=== PATIENT | male | born 1950 | race Caucasian/White ===

== ENCOUNTER 2019-11-05 19:53 | Emergency (ER) | payer MEDICARE, OTHER, SELFPAY ==
[2019-11-05 19:59] VITALS: BP 178/97; PULSE 107; RESP 18; TEMP 36.8; O2SAT 97; BMI 37.1
--- NOTE | 2019-11-05 20:38 | ECG_ITS ---
Measurements Intervals [place] Rate: 103 P: 12 [place]: 182 QRS: 41 QRSD: 89 T: 30 QT: 346 QTc: 453 SINUS TACHYCARDIA POSSIBLE LEFT ATRIAL ENLARGEMENT [-0.1mV P WAVE IN V1/V2] NONSPECIFIC T-WAVE ABNORMALITY ABNORMAL RHYTHM ECG No previous ECG available for comparison Electronically Signed On 11-06-2019 20:45:33 ACUTE CARE CLINICAL NURSE SPECIALIST by Valentina Aguila M.D. [id number]
--- NOTE | 2019-11-05 20:53 | W.ED.GENADLT ---
HPI - General Adult General: Chief complaint: General Medical Stated complaint: high bp Time Seen by Provider: 11/05/19 20:53 Source: patient Mode of arrival: ambulatory Limitations: no limitations History of Present Illness: HPI narrative: Patient comes in today with some chest pressure and then elevation in his blood pressure. Patient states that started early this evening he felt that it may have been due to coughing and wrenching his back a little. Patient does have some neck and back chronic problems. Patient states that he does feel better now but still has some pressure in his neck on the left side and in his chest. Associated symptoms: Reports chest pain Review of Systems General: Reports: 10 or more systems reviewed and unremarkable except in HPI and below Card: Reports: chest pain Musc: Reports: neck pain and back pain PFSH ED PFSH: Social History Smoking and tobacco status: never smoked Physical Exam Const: COMMON NORMALS: no apparent distress and oriented x3 GENERAL APPEARANCE: cooperative HENMT: COMMON NORMALS: normocephalic, external ears normal, EAC's normal, TM's normal bilaterally and external nose normal HEAD & SCALP: normal to inspection and normocephalic FACE & SINUS: normal facial exam NOSE: external nose normal GENERAL EAR: hearing not grossly impaired EXTERNAL EAR: Yes external ears normal EXTERNAL AUDITORY CANAL: EAC's normal TYMPANIC MEMBRANE: TM's normal bilaterally MOUTH: oral and palatal mucosa normal THROAT: posterior oropharynx normal Eye: COMMON NORMALS: PERRL and EOMs intact bilaterally PUPIL: Yes PERRL Neck/C-Spine: COMMON NORMALS: full ROM and no lymphadenopathy Lymph: LYMPHATIC: no lymphedema noted Chest: COMMONS NORMALS: inspection of chest normal and palpation of chest normal Resp: COMMON NORMALS: normal respiratory effort and clear to auscultation bilaterally AUSCULTATION: clear to auscultation bilaterally Cardio: COMMON NORMALS: regular rate and regular rhythm RATE: regular rate RHYTHM: regular rhythm GI: COMMON NORMALS: normal to inspection, nondistended, normoactive bowel sounds and non-tender : COMMON NORMALS: Yes no CVA tenderness BLADDER/KIDNEY EXAM: Yes no CVA tenderness Back/Pelvis: COMMON NORMALS: no CVA tenderness and thoracic and lumbar spine normal to inspection Extremity: COMMON NORMALS: normal to inspection GENERAL: No edema Neuro: COMMON NORMALS: oriented x3, moves all extremities and no focal motor deficits Psych: COMMON NORMALS: mental status grossly normal and cooperative Skin: COMMON NORMALS: no rashes or lesions noted GENERAL SKIN EXAM: no rashes or lesions noted Course Vital Signs: Vital signs: Vital Signs Temperature 98.2 F 11/05/19 19:59 Pulse Rate 107 H 11/05/19 19:59 Respiratory Rate 18 11/05/19 19:59 Blood Pressure 178/97 11/05/19 19:59 Pulse Oximetry 97 11/05/19 19:59 MDM - General Adult MDM Narrative: Medical decision making narrative: Patient comes in today for concerns of chest discomfort with pressure. Patient has had a history of coronary artery bypass. Patient denies any shortness of breath or lightheadedness. Patient did report some elevation in blood pressure. Exam noted some anterior chest wall pain on palpation. Respirations were even lungs were clear to auscultation. Heart rate was regular. EKGs with sinus rhythm. Differential diagnosis includes ACS, CHF, pneumonia, costochondritis, thoracic spine pain, myofascial strain. Laboratory values noted normal troponin. EKG showed no changes. CBC and CMP were fairly normal. Reviewed exam with patient with recommendations for treatment follow-up with primary care. I did offer for patient to be admitted overnight for further monitoring patient did not want to stay and reported that he would follow-up with primary care and felt well without pain on discharge. Lab Data: Labs: Lab Results 11/05/19 11/05/19 11/05/19 Range/Units 21:22 21:22 21:22 WBC 7.2 (4.0-10.0) 10^3/ uL RBC 5.41 H (4.1-5.3) 10^6/u L Hgb 16.7 H (11.7-16.6) g/dL Hct 49.7 (42.0-52.0) % MCV 91.9 (80-94) fL MCH 30.9 (28.0-34.0) pg MCHC 33.6 (30.0-36.0) g/dL RDW 12.8 (12.1-15.1) % Plt Count 179 (130-400) 10^3/c mm MPV 10.4 (7.4-10.4) fL Neut % (Auto) 70.9 % Lymph % (Auto) 19.6 % [place] % (Auto) 7.9 % Eos % (Auto) 0.6 % Baso % (Auto) 0.6 % Neut # (Auto) 5.1 (1.8-7.7) 10^3/u L Lymph # (Auto) 1.4 (0.8-4.8) 10^3/u L [place] # (Auto) 0.6 (0.2-0.9) 10^3/u L Eos # (Auto) 0.0 (0.0-0.8) 10^3/u L Baso # (Auto) 0.0 (0.0-0.1) 10^3/u L Nucleated RBC % (a uto) 0 % Nucleated RBCs # 0.0 /100WBC Sodium 136 (136-145) mmol/L Potassium 4.1 (3.5-5.1) mmol/L Chloride 96 L (98-107) mmol/L Carbon Dioxide 25 (22-29) mmol/L Anion Gap 19.1 H (5-19) BUN 11 (8-23) mg/dL Creatinine 0.8 (0.7-1.2) mg/dL GFR Calculation 96.1 (90-130) mL/min Glucose 164 H (65-115) mg/dL Calcium 10.1 (8.5-10.5) mg/dL Total Bilirubin 1.0 (0.15-1.2) mg/dL AST 44 H (0-40) U/L ALT 37 (0-41) U/L Alkaline Phosphata se 88 (40-130) IU/L Troponin T Baselin e 7 (0-15) ng/mL Total Protein 8.3 (6.6-8.7) g/dL Albumin 4.2 (3.5-5.2) g/dL Globulin 4.1 (1.3-4.6) g/dL EKG Data^: EKG 1: Attestation: I personally reviewed and interpreted this EKG as follows: (1999, SR rate 97 regular, no ectopy, no ST elevation, ) EKG 2: Attestation: I personally reviewed and interpreted this EKG as follows: (2134, Sinus tach, rate 103, regular, no ST elevation, no ectopy, no change from prior at 1999) Discharge Plan Discharge Patient Disposition: Home, Self-Care Clinical Impression: Acute chest wall pain Condition: Stable Prescriptions: No Action aspirin 325 mg Tablet 325 mg PO DAILY RF: 0 allopurinol 100 mg Tablet 100 mg PO DAILY RF: 0 ramipril 5 mg Capsule 5 mg PO DAILY RF: 0 ramipril 10 mg Capsule 10 mg PO DAILY RF: 0 metoprolol tartrate 75 mg Tablet 75 mg PO DAILY RF: 0 Fish Oil 2 cap PO DAILY RF: 0 Discharge Orders: Discharge Order (Routine); Ordered 11/05/19 Ordered By: Steve Penaloza Referrals: Scott Andrade MD [Primary Care Provider] - Discharge Diet: Usual diet Discharge Activity: Increase activity as tolerated Patient Instructions: Chest Pain (ED) Activity Restrictions/Additional Instructions: Drink plenty of water Continue routine medication for pain at home Activity as tolerated Follow-up with primary care in one week for recheck REturn to ER for increase chest pain or shortness of breath. Coding Level of Care Code ED Stone Derrickman And Rigger for Markus Kothari Exam Problem Focused
--- NOTE | 2019-11-05 21:13 | ECG_ITS ---
Measurements Intervals [place] Rate: 97 P: 8 [place]: 179 QRS: 37 QRSD: 93 T: 32 QT: 359 QTc: 458 SINUS RHYTHM NONSPECIFIC T-WAVE ABNORMALITY No previous ECG available for comparison Electronically Signed On 11-06-2019 20:45:25 MARKETING TECHNOLOGY SPECIALIST by Valentina Aguila M.D. [id number]
--- NOTE | 2019-11-05 21:13 | XR_ITS ---
WS: [id number] PORTABLE CHEST HISTORY: Cough with elevated blood pressure. COMPARISON: None available. Hyperinflated lungs with changes of emphysema. Normal vasculature. No pneumonia. No pleural effusion or pneumothorax. Cardiac size: Normal. Mediastinum/Aorta: Prior mediastinum sternotomy. Extensive surgical clips around the heart from CABG. Degenerative changes at the glenohumeral joints and AC joints. XR/XR chest 1V portable [id number] IMPRESSION: 1. Prior CABG. 2. Chronic emphysema with no pneumonia.
[2019-11-05 21:47] LABS: Basophils % 0.6 %; Eosinophils % 0.6 %; Hematocrit 49.7 % (42.0-52.0); Hemoglobin 16.7 g/dL (11.7-16.6); Lymphocytes # 1.4 10^3/uL (0.8-4.8); Lymphocytes % 19.6 %; Mean Corpuscular HGB Conc 33.6 g/dL (30.0-36.0); Mean Corpuscular Hemoglobin 30.9 pg (28.0-34.0); Mean Corpuscular Volume 91.9 fL (80-94); Mean Platelet Volume 10.4 fL (7.4-10.4); Monocytes # 0.6 10^3/uL (0.2-0.9); Monocytes % 7.9 %; Neutrophils # 5.1 10^3/uL (1.8-7.7); Neutrophils % 70.9 %; Nucleated Red Blood Cells % 0 %; Platelet Count 179 10^3/cmm (130-400); Red Blood Count 5.41 10^6/uL (4.1-5.3); Red Cell Distribution Width 12.8 % (12.1-15.1); White Blood Count 7.2 10^3/uL (4.0-10.0)
[2019-11-05 21:57] LABS: Alanine Aminotransferase 37 U/L (0-41); Albumin Level 4.2 g/dL (3.5-5.2); Alkaline Phosphatase 88 IU/L (40-130); Anion Gap 19.1 (5-19); Aspartate Amino Transferase 44 U/L (0-40); Blood Urea Nitrogen 11 mg/dL (8-23); Calcium 10.1 mg/dL (8.5-10.5); Carbon Dioxide 25 mmol/L (22-29); Chloride 96 mmol/L (98-107); Globulin 4.1 g/dL (1.3-4.6); Glomerular Filtration Rate 96.1 mL/min (90-130); Glucose 164 mg/dL (65-115); Potassium 4.1 mmol/L (3.5-5.1); Sodium 136 mmol/L (136-145); Total Protein 8.3 g/dL (6.6-8.7)
[2019-11-05 22:10] LABS: Troponin(5th) Baseline 7 ng/mL (0-15)
[2019-11-05 22:48] VITALS: BP 136/83; PULSE 104; RESP 16; TEMP 36.9; O2SAT 98
[2019-11-05 22:50] LABS: Add Urine Microscopic? NO
[2019-11-05 23:04] LABS: Urine Appearance Clear (CLEAR); Urine Color Yellow (Yellow)
[2019-11-05 23:05] LABS: Bilirubin Urine Neg (NEGATIVE); Blood Urine Neg (Negative); Glucose Urine UA Norm (Normal); Ketones Urine Negative (Negative); Leukocyte Esterase Urine Negative (Negative); Nitrate Urine Negative (Negative); Protein Urine Neg (Negative); Specific Gravity, Urine 1.025 (1.005-1.030); Urobilinogen Urine Norm (Negative); pH Urine 5 (5-7)
== END 2019-11-05 22:49 | disposition home or self-care (01) ==
PROVIDERS: Emergency Provider Nurse Practitioner Family; Family Provider Family Medicine; PCP Family Medicine
DX: R07.89 Other chest pain (principal); Z95.1 Presence of aortocoronary bypass graft
CPT/HCPCS: 71045; 80053; 81003; 84484; 85025; 93005; 99282; 99283; A9270

== ENCOUNTER → 2020-02-16 16:02 | Outpatient (BNVA) | payer MEDICARE, OTHER, SELFPAY | PROVIDERS: Family Provider Family Medicine; PCP Family Medicine; Referring Provider Family Medicine; Visit Provider Podiatrist Foot & Ankle Surgery | DX: M79.672 Pain in left foot (principal); M79.671 Pain in right foot; M19.071 Primary osteoarthritis, right ankle and foot; M77.32 Calcaneal spur, left foot | CPT/HCPCS: 73630 ==

== ENCOUNTER → 2020-12-09 08:21 | Outpatient (BNVA) | payer MEDICARE, OTHER, SELFPAY | PROVIDERS: PCP Family Medicine; Referring Provider Nurse Practitioner Family; Visit Provider Anesthesiology Pain Medicine | DX: G89.29 Other chronic pain (principal); M54.12 Radiculopathy, cervical region; M50.90 Cervical disc disorder, unspecified, unspecified cervical region; M47.812 Spondylosis without myelopathy or radiculopathy, cervical region; Z79.899 Other long term (current) drug therapy | CPT/HCPCS: 99205 ==

== ENCOUNTER 2020-12-21 15:35 | Outpatient (CLI) | payer MEDICARE, OTHER, SELFPAY ==
--- NOTE | 2020-12-21 15:59 | MR_ITS ---
WS: [id number] MRI CERVICAL SPINE NONCONTRAST TECHNIQUE: Sagittal T1, T2 and STIR imaging. Axial T2, gradient, and fiesta imaging. CLINICAL INFORMATION: M54.12 - Radiculopathy, cervical region COMPARISON: MRI September 2017 FINDINGS: Normal cervical alignment. Mild disc bulging C6-C7 and C7-T1. No high-grade central canal stenosis. C ord signal is normal. C2-C3: Mild facet arthropathy. Spinal canal and foramen are patent. C3-C4: Osteophytic ridging with tiny shallow central disc osteophyte protrusion. Moderate right bony foraminal narrowing. Osteophytic ridging. Mild left bony foraminal narrowing. Mild facet arthropathy. Mild central canal stenosis C4-C5: Disc osteophyte complex eccentric to the right. Mild central canal stenosis. Slight contact of the cervical cord. Moderate to severe right and mild to moderate left bony foraminal narrowing. Mild to moderate facet arthropathy. C5-C6: Disc osteophyte complex with endplate ridging. Mild central canal stenosis. Moderate to severe bilateral bony foraminal narrowing with moderate facet arthropathy. C6-C7: Disc osteophyte complex with endplate ridging. Severe left and moderate right bony foraminal n arrowing. Spinal canal is patent. C7-T1: Disc osteophyte complex with endplate ridging. Severe bilateral bony foraminal narrowing. Spin al canal is patent. Overall no significant changes since 2018 MR/MR cervical spin wo con* [id number] IMPRESSION: 1. Normal cervical alignment. Cord signal is normal. No high-grade central can al stenosis. 2. Mild central canal stenosis C3-C4 C4-C5 C5- C6 due to disc osteophyte compl exes. This is unchanged from previous. 3. Multilevel moderate to severe bony foraminal narrowing unchanged from previ ous worse at right C3-4, right C4-5, bilateral C5-C6, and left C6-7. 4. Moderate facet arthropathy worse at right C3-4 and C4-C5.
== END 2020-12-21 15:36 | disposition home or self-care (01) ==
LOC: RADWPI 15:41
PROVIDERS: PCP Family Medicine; Visit Provider Anesthesiology Pain Medicine
DX: M54.12 Radiculopathy, cervical region (principal); M47.812 Spondylosis without myelopathy or radiculopathy, cervical region; M48.02 Spinal stenosis, cervical region; M25.78 Osteophyte, vertebrae
CPT/HCPCS: 72141

== ENCOUNTER → 2020-12-26 13:39 | Outpatient (BNVA) | payer MEDICARE, OTHER, SELFPAY | PROVIDERS: PCP Family Medicine; Visit Provider Anesthesiology Pain Medicine | DX: M54.12 Radiculopathy, cervical region (principal) | CPT/HCPCS: 62321; J1100 ==

== ENCOUNTER → 2021-01-11 10:10 | Outpatient (BNVA) | payer MEDICARE, OTHER, SELFPAY | PROVIDERS: PCP Family Medicine; Visit Provider Anesthesiology Pain Medicine | DX: M54.12 Radiculopathy, cervical region (principal); M50.90 Cervical disc disorder, unspecified, unspecified cervical region; M47.812 Spondylosis without myelopathy or radiculopathy, cervical region; M47.816 Spondylosis without myelopathy or radiculopathy, lumbar region; M51.36 Other intervertebral disc degeneration, lumbar region | CPT/HCPCS: 99214 ==

== ENCOUNTER 2021-01-20 10:51 | Outpatient (CLI) | payer MEDICARE, OTHER, SELFPAY ==
--- NOTE | 2021-01-20 10:53 | MR_ITS ---
WS: [id number] MRI LUMBAR SPINE NONCONTRAST HISTORY: LUMBOSACRAL RADICULOPATHY COMPARISON: None available. TECHNIQUE: Sagittal and axial multisequence imaging is submitted. Increase in thoracic kyphosis. Multiple cystic masses are identified on this survey image through the mid thoracic spine vertebral foramen. 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 Mild LEFT curvature lumbar spine. Mild disc space narrowing and desiccation. No marrow edema or fracture. Conus terminates normally at L1. L1-L2: Normal. L2-L3: Mild annular disc bulging and ligamentum flavum and facet arthritis. Mild LEFT foraminal steno sis. L3-L4: Diffuse asymmetric annular disc bulging with a focal RIGHT foraminal disc protrusion and annul ar fissure which does appear to impinge upon the L4 nerve root. Moderate asymmetric ligamentum flavum hypertrophy, RIGHT greater than LEFT. Moderate central and RIGHT subarticular recess stenosis. Mild bilateral foraminal stenosis and LEFT subarticular stenosis. L4-L5: Diffuse asymmetric disc bulging and osteophytic ridging. There are small annular fissure centr ally and to the RIGHT. Disc osteophyte encroachment into the foramen bilaterally causing mild bilater al foraminal stenosis. Moderate central and bilateral subarticular recess stenosis. L5-S1: Mild annular disc bulge. No significant stenosis. MR/MR lumbar spine wo con* [id number] IMPRESSION: 1. Moderate central and RIGHT subarticular recess stenosis at L3-4 secondary t o asymmetric disc bulging and a RIGHT foraminal disc protrusion. Disc protrusio n contacts the L4 nerve root. 2. Mild bilateral foraminal and LEFT subarticular recess stenosis at L3-4. 3. Moderate central and bilateral subarticular recess stenosis at L4-5 due to disc osteophyte and facet/ligamentum flavum hypertrophy.
== END 2021-01-20 10:52 | disposition home or self-care (01) ==
LOC: RADSHAW 10:52
PROVIDERS: PCP Family Medicine; Visit Provider Family Medicine
DX: M54.17 Radiculopathy, lumbosacral region (principal); M48.061 Spinal stenosis, lumbar region without neurogenic claudication
CPT/HCPCS: 72148

== ENCOUNTER → 2021-02-08 10:33 | Outpatient (BNVA) | payer MEDICARE, OTHER, SELFPAY | PROVIDERS: PCP Family Medicine; Visit Provider Anesthesiology Pain Medicine | DX: M54.9 Dorsalgia, unspecified (principal); M54.12 Radiculopathy, cervical region; M50.90 Cervical disc disorder, unspecified, unspecified cervical region; M47.812 Spondylosis without myelopathy or radiculopathy, cervical region; M25.511 Pain in right shoulder; M47.816 Spondylosis without myelopathy or radiculopathy, lumbar region; M51.36 Other intervertebral disc degeneration, lumbar region | CPT/HCPCS: 99214 ==

== ENCOUNTER → 2021-02-13 13:50 | Outpatient (BNVA) | payer MEDICARE, OTHER, SELFPAY | PROVIDERS: PCP Family Medicine; Visit Provider Anesthesiology Pain Medicine | DX: M54.16 Radiculopathy, lumbar region (principal); M54.9 Dorsalgia, unspecified | CPT/HCPCS: 64483; 64484; J1100; J3490 ==

== ENCOUNTER → 2021-02-28 09:20 | Outpatient (BNVA) | payer MEDICARE, OTHER, SELFPAY | PROVIDERS: PCP Family Medicine; Visit Provider Anesthesiology Pain Medicine | DX: M54.9 Dorsalgia, unspecified (principal); M54.12 Radiculopathy, cervical region; M50.90 Cervical disc disorder, unspecified, unspecified cervical region; M47.812 Spondylosis without myelopathy or radiculopathy, cervical region; M47.816 Spondylosis without myelopathy or radiculopathy, lumbar region; M51.36 Other intervertebral disc degeneration, lumbar region; M25.561 Pain in right knee; M25.511 Pain in right shoulder | CPT/HCPCS: 99214 ==

== ENCOUNTER 2022-03-02 11:07 | Outpatient (CLI) | payer MEDICARE, OTHER, SELFPAY ==
--- NOTE | 2022-03-02 | XR_ITS ---
WS: [id number] Exam: XR chest 2V* [id number] Date/Time of Exam: 03/02/2022 12:00 AM Reason For Exam: PRE SURGICAL Comparison 11/05/2019. Lungs are clear and fully expanded. Normal cardiomediastinal silhouette. Signs of previous CABG surge ry. No pleural effusions. Bony structures are intact. XR/XR chest 2V* [id number] IMPRESSION: 1. No acute cardiopulmonary finding.
== END 2022-03-02 11:08 | disposition home or self-care (01) ==
LOC: RADOUTREAD 11:09
PROVIDERS: PCP Family Medicine; Visit Provider Orthopaedic Surgery
DX: Z01.811 Encounter for preprocedural respiratory examination (principal)
CPT/HCPCS: 71046

== ENCOUNTER → 2022-07-23 14:07 | Outpatient (BNVA) | payer MEDICARE, OTHER, SELFPAY | PROVIDERS: PCP Family Medicine; Visit Provider Internal Medicine Cardiovascular Disease | DX: I25.10 Atherosclerotic heart disease of native coronary artery without angina pectoris (principal); I10 Essential (primary) hypertension; E78.49 Other hyperlipidemia | CPT/HCPCS: 99214 ==

== ENCOUNTER → 2023-03-20 11:06 | Outpatient (BNVA) | payer MEDICARE, OTHER, SELFPAY | PROVIDERS: PCP Family Medicine; Visit Provider Internal Medicine Cardiovascular Disease | DX: I25.10 Atherosclerotic heart disease of native coronary artery without angina pectoris (principal); I10 Essential (primary) hypertension; E78.49 Other hyperlipidemia; Z79.82 Long term (current) use of aspirin | CPT/HCPCS: 99214 ==

== ENCOUNTER → 2023-12-24 08:43 | Outpatient (BNVA) | payer MEDICARE, OTHER, SELFPAY | PROVIDERS: PCP Family Medicine; Visit Provider Nurse Practitioner Family | DX: I25.10 Atherosclerotic heart disease of native coronary artery without angina pectoris (principal); I10 Essential (primary) hypertension | CPT/HCPCS: 99214 ==

== ENCOUNTER → 2024-09-24 14:01 | Outpatient (BNVA) | payer MEDICARE, OTHER, SELFPAY | PROVIDERS: PCP Family Medicine; Visit Provider Internal Medicine | DX: I25.10 Atherosclerotic heart disease of native coronary artery without angina pectoris (principal); I10 Essential (primary) hypertension; E78.49 Other hyperlipidemia; M47.816 Spondylosis without myelopathy or radiculopathy, lumbar region; M50.90 Cervical disc disorder, unspecified, unspecified cervical region; Z95.1 Presence of aortocoronary bypass graft | CPT/HCPCS: 99214 ==

== ENCOUNTER → 2025-06-24 13:13 | Outpatient (BNVA) | payer MEDICARE, OTHER, SELFPAY | PROVIDERS: PCP Family Medicine; Visit Provider Internal Medicine Cardiovascular Disease | DX: I25.10 Atherosclerotic heart disease of native coronary artery without angina pectoris (principal); I10 Essential (primary) hypertension; E78.5 Hyperlipidemia, unspecified; M19.90 Unspecified osteoarthritis, unspecified site | CPT/HCPCS: 99214 ==